=== PATIENT | female | born 1990 | race Caucasian/White ===

== ENCOUNTER → 2019-09-05 | Emergency (ER) | payer MEDICAID, OTHER ==
[~2019-09-05] VITALS: Ht 167.6 cm; Wt 58.1 kg
[~2019-09-05] MED LIST: GABAPENTIN 100 MG CAP PO ONE; NALBUPHINE HCL 10 MG/1ml INJECTION IM ONE
[2019-09-05 01:46] LABS: Urine Amorphous Crystal FEW /hpf (None Seen); Urine Bacteria FEW /hpf (None Seen); Urine Blood Negative /uL (Negative); Urine Mucus FEW (None Seen); Urine Specific Gravity 1.029 (1.001-1.035); Urine WBC 7 /hpf (0 - 5)
[2019-09-05 03:30] VITALS: BP 128/54
== END | disposition home or self-care (01) ==
LOC: ER 00:28
DX: N39.0 Urinary tract infection, site not specified (principal); F15.10 Other stimulant abuse, uncomplicated; G89.29 Other chronic pain; M54.9 Dorsalgia, unspecified
CPT/HCPCS: 81001